=== PATIENT | male | born 1945 | race Two or more races ===

== ENCOUNTER → 2017-03-30 | Outpatient (CLI) | payer MEDICARE, OTHER ==
[~2017-03-30] MED LIST: ANAP550T PO; ATOR1TAB21 PO; CVS20TAB PO; GARL2000 PO; MULTTAB PO; NEUR100C PO; ROBA750T4 PO; VITA-182 PO; VITA100T60 PO; VITA500T PO
--- NOTE | 2017-04-29 02:02 | ECWPNPC ---
PATIENT NAME: EMI DELAROSA : 1945 GENDER: MALE VISIT DATE: 03/30/2017 DISCHARGE DATE: 03/30/17 1211 VISIT LOCKED DATE TIME: PHYSICIAN: MAGDY CELAYA RESOURCE: MAGDY CELAYA REASON FOR APPOINTMENT 1. BACK PAIN HISTORY OF PRESENT ILLNESS NEW PATIENT CONSULT: WHEN DID YOUR PAIN FIRST START? . BRIEFLY DESCRIBE HOW YOUR PAIN STARTED? . HOW DOES YOUR PAIN CHANGE WITH TIME? . DOES YOUR PAIN AWAKEN YOU FROM SLEEP? . HOW MANY HOURS OF SLEEP DO YOU NORMALLY GET? . ANY DIAGNOSTIC TESTING? . FACILITY WHERE TESTS WERE DONE? ____. PAIN TREATMENT TREATMENT YES CANCER HAVE YOU EVER HAD ANY TYPE OF CANCER?NO NO. PAIN SCREENING: PATIENT HAS A COMPLAINT OF ACUTE OR CHRONIC PAIN :YES FALL RISK SCREENING: SCREENING :NO FALLS IN THE PAST YEAR PAN INVENTORY: QUESTIONNAIRE ASSESSEDYES SCORE VALUE CALCULATED YES SCORE: 3/63 DENIES SUICIDAL OR HOMICIDAL IDEATION TODAY'S VISIT: NOTES: REFERRED BY DR Avani HORVATH FOR CHRONIC LOW BACK PAIN X 2 YEARS WITH INTERMITTANT NUMBNESS INTO BOTH LEGS. LAST 1 1/2 MONTHS HAS BEEN HAVING INCREASED PAIN. WAS SEEN BY CHIROPRACTOR AND THIS HELPED PREVIOUS. WAS ALSO REFERRED TO DR AMAYA - IS BEING SCHEDULED FOR LAMINECTOMY WITH IN [place]. CURRENTLY IS HAVING NUMBNESS AND TINGLING IN BOTH LEGS R>L FROM KNEES DOWN. CAN NOT GET COMFORTABLE AND CAN NOT SLEEP. NUMBNESS PRESENT WHEN PRIMARILY WHEN STANDING. NO SIGNIFICANT WEAKNESS IN LOWER EXTREMITIES. DENIES LOSS OF BOWEL OR BLADDER CONTROL. RATES PAIN LEVEL TODAY 7/10. DESCRIBES PAIN CONSTANT AND CENTERED OVER LOWBACK. . CURRENT MEDICATIONS TAKING NAPROXEN SODIUM 550 MG TABLET (PRIOR AUTH: RX REF#:[id number]) ORAL BID TAKING OMEPRAZOLE 40 MG CAPSULE DELAYED RELEASE (PRIOR AUTH: RX REF#:[id number]) ORAL TAKING ATORVASTATIN CALCIUM 20 MG TABLET (PRIOR AUTH: RX REF#:[id number]) ORAL DAILY TAKING GABAPENTIN 100 MG CAPSULE (PRIOR AUTH: RX REF#:[id number]) ORAL BID TAKING METHOCARBAMOL 750 MG TABLET (PRIOR AUTH: RX REF#:[id number]) ORAL FOUR TIMES DAILY NEEDED TAKING FERROUS GLUCONATE 325 MG CAPSULE ORALLY MEDICATION LIST REVIEWED AND RECONCILED WITH THE PATIENT PAST MEDICAL HISTORY HYPERLIPIDEMIA CHRONIC NECK AND BACK PAIN ANEMIA NOCTURIA DIVERTICULOSIS ALLERGIES N.K.D.A. SURGICAL HISTORY NECK SURGERY PLATE AND BONE USED 10-15 YEARS AGO FAMILY HISTORY MOTHER: DIAGNOSED WITH HYPERTENSION SOCIAL HISTORY GENERAL: TOBACCO USE ARE YOU A:NONSMOKER ALCOHOL SCREENING POINTS0 INTERPRETATIONNEGATIVE CAFFEINE CAFFEINE USE?YES EXERCISE: USED TO WALK ALOT/ UNABLE TO WALK MUCH LATELY DUE TO INCREASING PAIN. JEWISH [id number] CONGREGATIONAL LEARNING BARRIERS / SPECIAL NEEDS HEARING IMPAIRED? HAD A DIFFICULT TIME HEARING ME TWICE READINESS TO LEARN?YES LEARNING PREFERENCES?NO LEARNING CAPABILITIES PRESENT?YES EMOTIONAL BARRIERS?NO SPECIAL DEVICES?NO PAIN CLINIC PFS, CLERGY, PUBLIC HEALTH REFERRALS PFS REFERRAL NEEDED?NO CLERGY REFERRAL NEEDED?NO PUBLIC HEALTH REFERRAL NEEDED?NO WAS THE PROVIDER NOTIFIED OF ANY PERTINENT INFO?NO HAS THE PATIENT BEEN EDUCATED REGARDING HIS/HER PLAN OF CARE?YES HAS THE PATIENT BEEN EDUCATED REGARDING PAIN, THE RISK FOR PAIN, THE IMPORTANCE OF EFFECTIVE PAIN MANAGEMENT, AND THE PAIN ASSESSMENT PROCESS?YES PATIENT: DENIES ABUSE OR MISUSE OF ANY MEDICATION. ADVANCE DIRECTIVES HEALTH CARE PROXY?NO WOULD YOU LIKE MORE INFORMATION? HAS PAPERWORK ALREADY LIVING WILL?NO WOULD YOU LIKE MORE INFORMATION?NO POWER OF DIRECTOR OF GUIDANCE?NO WOULD YOU LIKE MORE INFORMATION?NO HOSPITALIZATION/MAJOR DIAGNOSTIC PROCEDURE NECK SURGERY 10-15 YEARS AGO REVIEW OF SYSTEMS REVIEWED BY: PROVIDER: MAGDY PANDEY . CONSTITUTIONAL: ANY CHANGE IN YOUR MEDICAL CONDITION? YES, BACK IS MUCH WORSE OVER PAST 2 MONTHS . CHILLS NO . FEVER NO . INFECTION: DO YOU HAVE NEW INFECTIONS? NO . DO YOU HAVE HISTORY OF MRSA? NO . MUSCULOSKELETAL: ANY NEW PATTERNS OF PAIN OR NUMBNESS? YES, LOW BACK HURTING FOR THE LAST MONTH. IS HAVING SURGERY THE LAST OF APRIL IN [place] . SYTEMIC LUPUS NO . GASTROENTEROLOGY: ANY NEW CHANGE IN BOWEL CONTROL? NO . BARRETTS ESOPHAGUS NO . CIRRHOSIS NO . HEPATITIS NO . LIVER FAILURE NO . ACID REFLUX NO . UNEXPLAINED WEIGHT LOSS NO . GENITOURINARY: ANY NEW CHANGE IN BLADDER CONTROL? NO . IS THERE A CHANCE YOU COULD BE ? NO . HEMATOLOGY/LYMPH: DO YOU TAKE ANY BLOOD THINNERS? (FOR EXAMPLE- COUMADIN, PLAVIX, AGGRENOX, PLATEL, PRADAXA, OR XARELTO) NO . WHEN WAS YOUR LAST DOSE? DATE: TIME: . LOW PLATELET COUNT NO . SICKLE CELL DISEASE NO . VON WILLIEBRANDS NO . FACTOR V LEIDEN NO . THALLASEMIA NO . ANEMIA NO . EASY BRUISING NO . NEUROLOGY: HAVE YOU FALLEN IN THE PAST 6 MONTHS? NO . ANY NEW EXTREMITY NUMBNESS OR WEAKNESS? NO . HEAD INJURY NO . DEMENTIA NO . CEREBRAL PALSY NO . MULTIPLE SCLEROSIS NO . DIZZINESS NO . HEADACHE NO . STROKES NO . VERTIGO NO . CARDIOLOGY: DO YOU HAVE A PACEMAKER OR DEFIBRILLATOR? NO . ANGINA NO . HEART ATTACK NO . HEART SURGERY NO . CONGESTIVE HEART FAILURE/FLUID OVERLOAD NO . CHEST PAIN NO . HIGH BLOOD PRESSURE NO . IRREGULAR HEART BEAT NO . RESPIRATORY: HAVE YOU BEEN SICK IN THE PAST WEEK? NO . FEVER NO . FLU LIKE SYMPTOMS? NO . CPAP NO . BYPAP NO . ASTHMA NO . EMPHYSEMA NO . CHRONIC LUNG DISEASES NO . SHORTNESS OF BREATH ON EXERTION NO . DO YOU USE ANY TYPE OF TOBACCO (SMOKE, SMOKELESS, CHEW)? NO . COUGH NO . SNORING NO . INTEGUMENTARY: DO YOU HAVE ANY RASHES OR OPEN SORES? NO . ALLERGIC/IMMUNO: ARE YOU ALLERGIC TO SHELLFISH OR IV DYE? NO . ANY NEW ALLERGIES? NO . PSYCHIATRIC: DO YOU HAVE THOUGHTS OF HURTING YOURSELF OR SOMEONE ELSE? NO . ARE YOU ABUSED, NEGLECTED, OR IN AN UNSAFE ENVIRONMENT? NO . ENDOCRINOLOGY: ARE YOU DIABETIC? NO . THYROID DISORDER NO . OTHER: DO YOU NEED ANY PRESCRIPTIONS? NO . IF YES, PLEASE LIST: ____ . ANY NEW PROBLEMS WITH YOUR MEDICATIONS? NO . WHEN DID YOU LAST EAT? ____ . WHEN DID YOU LAST DRINK? ____ . WHAT DID YOU LAST DRINK? ____ . NAME OF PERSON DRIVING YOU HOME? ____ . DO YOU HAVE ANY OTHER QUESTIONS OR CONCERNS NO . VITAL SIGNS WT 198.4 LBS, HT 66 IN, BMI 32.02 INDEX, BP 128/86 MM HG, HR 84 /MIN, RR 16 /MIN, TEMP 97.8 F, OXYGEN SAT % 99, REVIEWED BY: NL. EXAMINATION GENERAL EXAMINATION: PSYCHALERT , ORIENTED X 3 , APPROPRIATE MOOD AND AFFECT . HEENT:NORMOCEPHALIC, NO LYMPHADENOPATHY, NO THYROMEGLY. LUNGS:CLEAR TO AUSCULTATION BILATERALLY. HEART:NORMAL S1S2, NO S3, S4, MURMUR OR RUB. MUSCULOSKELETAL:MUSCLE STRENGTH TESTING 5/5 BILATERAL LOWER EXTREMITIES FLAT FEET. BUNIONS BILAT. IS ABLE TO FLEX SPINE TO 45 DEGREES, EXTEND TO 10 DEGREES, AND HAD DIFFICULTY ROTATING TO RIGHT. SLR POSITIVE AT 30 DEGREES ON LEFT, 45 DEGREES ON RIGHT. ON RIGHT. POINT TENDERNESS TO PALPATION OVER LUMBOSACRAL AXIS. GAIT NONANTALGIC. NEUROLOGIC EXAM:DTR'S 3+ BILATERAL LOWER EXTREMITIES WHEN SEATED, TRACE WHILE SUPINE. NO SENSORY CHANGES ELICITED. ASSESSMENTS LUMBAR DISC DISPLACEMENT WITHOUT MYELOPATHY - M51.26 (PRIMARY) LUMBAR RADICULOPATHY - M54.16 TREATMENT LUMBAR DISC DISPLACEMENT WITHOUT MYELOPATHY START TRAMADOL HCL TABLET, 50 MG, 1 TABLET NEEDED, ORALLY, EVERY 6 HRS PRN PAIN MDD=3, 90 DAY(S), 270, REFILLS 1 NOTES: STATES HE IS NOT INTERESTED IN INJECTION THERAPY. TAKE TRAMADOL 1 TAB IN DAY TIME IF NEEDED - TAKE 1 AT BEDTIME AND MAY REPEAT IN NIGHT IF NEEDED. CLINICAL NOTES: [employer] REGISTRY REVIEWED AND DEMNOSTRATES COMPLLIANCE. (REF# [id number]#, #[id number] - SCREENING BMI AND F/U PLAN IN : BMI ABOVE NORMAL TODAY. DISCUSSED WITH PATIENT NUTRITIONAL FOOD CHOICES TO ASSIST WITH WEIGHT LOSS. RECCOMMENDED REDUCING SALT, SUGAR, SODA INTAKE. RECOMMEND INCREASE ACTIVITY TO INCLUDE WALKING ON A REGULAR BASIS. PROCEDURE CODES FA211 ESTABILISHED PATIENT [facility] FACILITY CHARGE G8783 BP SCR PRFRM RCMDD DEFIND SCR INTVL G8730 PAIN ASSESS POS TOOL F/U PLAN DOC 3016F PT SCRND UNHLTHY [place] USE 1124F ACP DISCUSS-NO DSCNMKR DOCD 1036F TOBACCO NON-USER G8427 DOC MEDS VERIFIED W/PT OR RE G8417 BMI >=30 CALCUATE W/FOLLOWUP 3288F FALL RISK ASSESSMENT DOCD DISPOSITION & COMMUNICATION FOLLOW UP CALL IF APPT NEEDED (REASON: BACK PAIN) ELECTRONICALLY SIGNED BY ZACHARY CHURCH ON 04/28/2017 AT 01:42 PM EDT DISCLAIMER : THIS IS A VISIT SUMMARY EXTRACTED FROM THE marker.to CHART. IT IS NOT A COPY OF THE marker.to PROGRESS NOTE. MTDD
== END ==
LOC: M PAIN 10:45
PROVIDERS: ATTEND Nurse Practitioner Family
DX: G89.29 Other chronic pain (principal); M51.26 Other intervertebral disc displacement, lumbar region; M54.16 Radiculopathy, lumbar region; E78.5 Hyperlipidemia, unspecified; Z79.899 Other long term (current) drug therapy

== ENCOUNTER → 2019-12-06 | Outpatient (CLI) | payer MEDICARE, OTHER ==
[~2019-12-06] MED LIST changes: -ANAP550T PO; +ANAP550T15 PO; +BACL10TA2 PO; +CELE1CAP4 PO; -CVS20TAB PO; +DAILTAB PO; +GARL500C2 PO; -MULTTAB PO; +OMEP20TA9 PO; +VITA-243 PO; -VITA500T PO; +VITAD1000T PO; +ferrous gluconate PO
== END ==
LOC: M LABSMTC 10:49
PROVIDERS: ATTEND Anesthesiology
DX: Z01.818 Encounter for other preprocedural examination (principal); Z11.59 Encounter for screening for other viral diseases
CPT/HCPCS: C9803; U0003

== ENCOUNTER 2019-12-09 10:50 | Day surgery (SDC) | payer MEDICARE, OTHER ==
[~2019-12-09] VITALS: Ht 167.6 cm; Wt 86.2 kg
[~2019-12-09 10:50] MED LIST changes: +BACITRACIN PWD 50,000 UNITS VIAL As Ordered ONE; +BUPIVACAINE HCL 0.5% 30 ML VIAL As Ordered ONE; +LIDOCAINE 1% MDV 20ML VIAL SQ PRN; +LIDOCAINE 2% MDV 20ML VIAL As Ordered ONE; +LR 1,000 ML IV ONE; +NEOSPORIN GU IRRIG 20 ML VIAL As Ordered ONE; +ceFAZolin SOD 2 GM in IV 1 EA IV ONE; +dexameTHASONE 4 MG/ML 1ML VIAL (J1100 PER 1MG) As Ordered ONE
[2019-12-09] MEDS ORDERED: MIDAZOLAM INJ 2MG/2ML VIAL (J2250 PER 1MG) As Ordered ONE (13:04)
[2019-12-09] MEDS ORDERED: LIDOCAINE 2% 100MG/5ML SDV (FOR ANES.) As Ordered ONE (13:04)
[2019-12-09] MEDS ORDERED: propofoL 200 MG/20 ML VIAL As Ordered ONE (13:04)
[2019-12-09] MEDS ORDERED: fentaNYL 100 MCG/2 ML INJECTION (J3010) As Ordered ONE (13:06)
[2019-12-09] MEDS ORDERED: ONDANSETRON 4MG/2ML VIAL As Ordered ONE (13:46)
[2019-12-09 16:35] VITALS: BP 156/81
--- NOTE | 2019-12-10 09:37 | REP ---
PORTABLE LEFT FOOT: FOUR VIEWS. HISTORY: Status post bunionectomy. No comparison radiographs. FINDINGS: There is a pin across the DIP and PIP joints of the 2nd toe. Osteotomy is appear to have been performed at the PIP joint for arthrodesis. A prosthetic device is seen in the proximal phalanx of the great toe which has been partially resected. Vascular calcification is noted. There is Achilles calcaneal spurring. IMPRESSION: Status post left 2nd PIP joint arthrodesis with pinning. Prior postsurgical changes at the great toe MTP joint. Electronically Signed by Jarrett Quiroga MD 12/11/2019 07:40 P
--- NOTE | 2019-12-16 17:09 | RO ---
DATE OF PROCEDURE: 12/09/2019 PREPROCEDURE DIAGNOSES: Hallux rigidus deformity, left foot. Hammertoe deformity 2nd toe, left foot. POSTPROCEDURE DIAGNOSES: Hallux rigidus deformity, left foot. Hammertoe deformity 2nd toe, left foot. PROCEDURES PERFORMED: 1. Groves bunionectomy with an implant arthroplasty, Arthrex AnaToemic implant. 2. Proximal interphalangeal joint arthroplasty 2nd toe with external wire fixation 0.045 x 1, left foot. 3. Dorsal 2nd metatarsophalangeal joint capsulotomy. SURGEON: ESTELITA MoyaM GROUNDSKEEPING MAINTENANCE WORKER: None. ANESTHESIA: Local monitored anesthesia care (MAC). IRRIGATION: Dilute bacitracin, neomycin and polymyxin B solution. HEMOSTASIS: Ankle pneumatic tourniquet at 250 mmHg, left ankle, for 50 minutes. HARDWARE UTILIZED: Arthrex AnaToemic phalangeal prosthesis and a 0.045 K-wire. DESCRIPTION OF PROCEDURE: On 12/09/2019, this 74-year-old male was taken from his hospital room to the operating room and placed on the operating table in the supine position. Following the induction of intravenous (IV) sedation and local and regional anesthesia, the left lower extremity was prepped and draped in the usual aseptic manner. Attention was directed to the patient's left foot, and the following procedure was performed: GROVES BUNIONECTOMY WITH IMPLANT ARTHROPLASTY, AN ARTHREX ANATOEMIC PHALANGEAL PROSTHESIS, LEFT FOOT. Attention directed to the patient's left foot. There was noted to be no range of motion noted of the 1st metatarsophalangeal joint. An approximately 8 cm incision was placed over the 1st metatarsophalangeal joint. The incision was deepened through subcutaneous tissues. All coursing venous tributaries were identified, clamped, cut, ligated and electrocoagulated as necessary. Linear capsulotomy was performed in the same plane as the original skin incision. The capsular and periosteal structures were then dissected free from the 1st metatarsophalangeal joint. There was noted to be considerable spurring on the dorsal, medial and lateral aspects of the 1st metatarsophalangeal joint. These were either rongeured or osteotomized with a power saw. The 1st metatarsal head was then remodeled. The base of the proximal phalanx was then osteotomized at the anatomical neck from dorsal to plantar, medial to lateral, through and through and this was extirpated from the wound in toto. Utilizing a trial spacer, an implant suitable for the phalanx was placed into the phalanx with the appropriate broach. Good range of motion was noted of the 1st metatarsophalangeal joint. The wound was again flushed with copious amounts f dilute bacitracin, neomycin and polymyxin B solution Attention was directed towards closure where the capsule was coapted and maintained with #2-0 Monocryl in a simple interrupted type fashion. Subcutaneous tissue was coapted and maintained utilizing #4-0 Monocryl in a simple interrupted type fashion. Skin incision was coapted and maintained utilizing #4-0 Prolene in a simple interrupted and horizontal mattress type fashion. Attention was then directed to the patient's 2nd toe where the following procedure was performed: PROXIMAL INTERPHALANGEAL JOINT ARTHROPLASTY WITH EXTERNAL WIRE FIXATION 0.045 x 1, 2ND TOE, LEFT FOOT. Attention was directed to the patient's 2nd toe where an incision was made over the proximal interphalangeal joint. The incision was deepened through the subcutaneous tissues, transverse tenotomy and capsulotomy was performed at the proximal interphalangeal joint. The medial and lateral collateral ligaments were incised delivering into view the head of the proximal phalanx, which was osteotomized from dorsal to plantar, through and through, and extirpated from the wound. The base of the proximal phalanx was then resected with a power saw. Considerable contracture was still noted at the 2nd toe. Therefore, the following procedure was performed: DORSAL CAPSULOTOMY 2ND METATARSOPHALANGEAL JOINT, LEFT FOOT: A linear incision was placed transversely at the metatarsophalangeal joint. The stab incision was then deepened with dissection scissors. The extensor expansion and bolaños was then released from the 2nd metatarsophalangeal joint, and the tendon was brought proximal into the wound where utilizing a scalpel, a dorsal capsulotomy was performed utilizing a freer elevator. The plantar plate was released. The extensor tendon was then brought back into the wound site, was repaired with #4-0 braided nylon suture with a modified Amin repair, four-stranded. The wound was flushed with copious amounts of dilute bacitracin, neomycin and polymyxin B solution. The wire placed across the 2nd toe was seen to end distal to the joint surface, and this was verified with fluoroscopy. Attention was then directed towards bandaging where a sterile compressive bandage was applied consisting of Adaptic, 4 x 4's, 4 x 4 splints, Luda, Kerlix and Coban. The patient having apparently tolerated the surgical procedure well was taken from the operating room (OR) to the recovery room, further monitoring by the anesthesia department. Postoperative instructions given upon discharge.
== END 2019-12-09 16:45 | disposition home or self-care (01) ==
LOC: M SDC 10:50
PROVIDERS: ATTEND Podiatrist
DX: M20.22 Hallux rigidus, left foot (principal); M20.42 Other hammer toe(s) (acquired), left foot; M79.672 Pain in left foot; E78.5 Hyperlipidemia, unspecified; K21.9 Gastro-esophageal reflux disease without esophagitis; Z79.899 Other long term (current) drug therapy
CPT/HCPCS: 28285; 28292; 73630; 88300; J0690; J1100; J2250; J2405; J3010

== ENCOUNTER → 2021-07-08 | Outpatient (CLI) | payer MEDICARE, OTHER ==
[~2021-07-08] MED LIST changes: -BACITRACIN PWD 50,000 UNITS VIAL As Ordered ONE; -BUPIVACAINE HCL 0.5% 30 ML VIAL As Ordered ONE; +D31000TA2 PO; -LIDOCAINE 1% MDV 20ML VIAL SQ PRN; -LIDOCAINE 2% MDV 20ML VIAL As Ordered ONE; -LR 1,000 ML IV ONE; -NEOSPORIN GU IRRIG 20 ML VIAL As Ordered ONE; +OMEP20TA2 PO; -OMEP20TA9 PO; -VITAD1000T PO; -ceFAZolin SOD 2 GM in IV 1 EA IV ONE; -dexameTHASONE 4 MG/ML 1ML VIAL (J1100 PER 1MG) As Ordered ONE
== END ==
LOC: M LABSMTC 11:38
PROVIDERS: ATTEND Anesthesiology
DX: Z01.812 Encounter for preprocedural laboratory examination (principal); Z11.52 Encounter for screening for COVID-19

== ENCOUNTER 2021-07-11 10:15 | Day surgery (SDC) | payer MEDICARE, OTHER ==
[~2021-07-11] VITALS: Ht 167.6 cm; Wt 82.5 kg
[2021-07-11] MEDS: NS 1,000 ML IV SCH ×2 (06:00→11:59)
[~2021-07-11 10:15] MED LIST changes: +LIDOCAINE 2% 100MG/5ML SDV (FOR ANES.) As Ordered ONE; +propofoL 200 MG/20 ML VIAL As Ordered ONE
--- NOTE | 2021-07-11 13:19 | ROOR ---
Patient Name: Omar Mixon Procedure Date: 07/11/2021 1:01 PM Date of : 1945 Age: 75 Room: [facility] Gender: Male Note Status: Finalized Procedure: Colonoscopy Indications: High risk colon cancer surveillance: Personal history of colonic polyps Providers: Marco Antonio Torrez Jr, MD Referring MD: AMADA CHAVEZ Requesting Provider: Medicines: Propofol per Anesthesia Complications: No immediate complications. Procedure: Pre-Anesthesia Assessment: - Prior to the procedure, a History and Physical was performed, and patient medications and allergies were reviewed. The patient is competent. The risks and benefits of the procedure and the sedation options and risks were discussed with the patient. All questions were answered and informed consent was obtained. Patient identification and proposed procedure were verified by the physician and the nurse in the pre-procedure area and in the procedure room. Mental Status Examination: alert and oriented. Airway Examination: normal oropharyngeal airway and neck mobility. Respiratory Examination: clear to auscultation. CV Examination: normal. ASA Grade Assessment: II - A patient with mild systemic disease. After reviewing the risks and benefits, the patient was deemed in satisfactory condition to undergo the procedure. The anesthesia plan was to use moderate sedation / analgesia (conscious sedation). Immediately prior to administration of medications, the patient was re-assessed for adequacy to receive sedatives. The heart rate, respiratory rate, oxygen saturations, blood pressure, adequacy of pulmonary ventilation, and response to care were monitored throughout the procedure. The physical status of the patient was re-assessed after the procedure. The Colonoscope was introduced through the anus and advanced to the cecum, identified by appendiceal orifice and ileocecal valve. The colonoscopy was performed without difficulty. The patient tolerated the procedure well. The quality of the bowel preparation was fair. Findings: The rectum, recto-sigmoid colon, descending colon, transverse colon, ascending colon, cecum, appendiceal orifice and ileocecal valve appeared normal. Multiple small and large-mouthed diverticula were found in the sigmoid colon. Impression: - Preparation of the colon was fair. - The rectum, recto-sigmoid colon, descending colon, transverse colon, ascending colon, cecum, appendiceal orifice and ileocecal valve are normal. - Diverticulosis in the sigmoid colon. - No specimens collected. Recommendation: - Discharge patient to home (ambulatory). - Repeat colonoscopy in 5 years for surveillance. Procedure Code(s): --- Professional --- 51810, Colonoscopy, flexible; diagnostic, including collection of specimen(s) by brushing or washing, when performed (separate procedure) Diagnosis Code(s): --- Professional --- Z86.010, Personal history of colonic polyps K57.30, Diverticulosis of large intestine without perforation or abscess without bleeding CPT copyright 2019 [employer]. All rights reserved. The codes documented in this report are preliminary and upon staff research scientist review may be revised to meet current compliance requirements. Marco Antonio Torrez MD Marco Antonio Torrez Jr, MD 07/11/2021 1:19:27 PM Electronically signed by Marco Antonio Torrez Jr, MD Number of Addenda: 0 Note Initiated On: 07/11/2021 1:01 PM Estimated Blood Loss: Estimated blood loss: none.
[2021-07-11 13:53] VITALS: BP 149/85
== END 2021-07-11 13:52 | disposition home or self-care (01) ==
LOC: M OPP 10:15
PROVIDERS: ATTEND Surgery
DX: Z12.11 Encounter for screening for malignant neoplasm of colon (principal); Z86.010 Personal history of colon polyps; K57.30 Diverticulosis of large intestine without perforation or abscess without bleeding; K21.9 Gastro-esophageal reflux disease without esophagitis; Z79.899 Other long term (current) drug therapy

== ENCOUNTER 2022-11-03 09:50 | Day surgery (SDC) | payer MEDICARE, OTHER ==
[~2022-11-03] VITALS: Ht 167.6 cm; Wt 85.3 kg
[~2022-11-03 09:50] MED LIST changes: +CYCLOPENTOLATE 1% OPHTH SOLN 2ML BTL OD SCH; -D31000TA2 PO; +DUOVISC (0.50ML VISCOAT/0.85ML PROVISC) OPHTH KIT As Ordered ONE; +FLURBIPROFEN 0.03% OPHTH SOLN 2.5 ML OD SCH; +LIDOCAINE 1% SDV 5ML VIAL As Ordered ONE; -LIDOCAINE 2% 100MG/5ML SDV (FOR ANES.) As Ordered ONE; +LR 1,000 ML IV SCH; +MIDAZOLAM INJ 2MG/2ML VIAL As Ordered ONE; +PHENYLEPHRINE 2.5% OPHTH SOL 2ML OD SCH; +TETRACAINE 0.5% OPHTH SOLN 4ML OD SCH; +TRAM50TA2 PO; +VITA100093 PO; +fentaNYL 100 MCG/2 ML INJECTION As Ordered ONE; +prevagen PO; -propofoL 200 MG/20 ML VIAL As Ordered ONE
[2022-11-03 12:55] VITALS: BP 169/99
== END 2022-11-03 13:00 | disposition home or self-care (01) ==
LOC: M SDC 09:50
PROVIDERS: ATTEND Ophthalmology
DX: H25.11 Age-related nuclear cataract, right eye (principal); H40.1112 Primary open-angle glaucoma, right eye, moderate stage; E78.5 Hyperlipidemia, unspecified; K21.9 Gastro-esophageal reflux disease without esophagitis; D64.9 Anemia, unspecified; Z79.899 Other long term (current) drug therapy
CPT/HCPCS: 66183; 66984; C1783; J2250; J3010; V2632

== ENCOUNTER → 2024-02-24 | Outpatient (CLI) | payer MEDICARE, OTHER ==
[~2024-02-24] MED LIST changes: -CYCLOPENTOLATE 1% OPHTH SOLN 2ML BTL OD SCH; -DUOVISC (0.50ML VISCOAT/0.85ML PROVISC) OPHTH KIT As Ordered ONE; -FLURBIPROFEN 0.03% OPHTH SOLN 2.5 ML OD SCH; -GARL500C2 PO; +GARL500C6 PO; +ISOVUE-370 76% 100ML VIAL ONE; -LIDOCAINE 1% SDV 5ML VIAL As Ordered ONE; -LR 1,000 ML IV SCH; -MIDAZOLAM INJ 2MG/2ML VIAL As Ordered ONE; -PHENYLEPHRINE 2.5% OPHTH SOL 2ML OD SCH; -TETRACAINE 0.5% OPHTH SOLN 4ML OD SCH; -fentaNYL 100 MCG/2 ML INJECTION As Ordered ONE
== END ==
LOC: M PLAIMG 09:01
PROVIDERS: ATTEND Urology
DX: R31.29 Other microscopic hematuria (principal); R82.89 Other abnormal findings on cytological and histological examination of urine
CPT/HCPCS: 74178; Q9967